=== PATIENT | female | born 1985 | race American Indian/Alaskan Native ===

== ENCOUNTER 2017-10-31 16:39 | Emergency (ER) | payer SELFPAY ==
[2017-10-31 17:10] VITALS: BP 148/99
[2017-10-31] MEDS ORDERED: MOTRIN PO ONE (18:53)
--- NOTE | 2017-10-31 18:54 | Emergency Department Report ---
Blank Doc - Documentation Documentation: Patient is a 32-year-old [place] female who states she was helping a friend clean up a new place that she is living in there was some debris on the ground and she patient may have stepped on something that went through a house shoe. Patient has swelling to the right foot and pain at the lateral foot. X-ray will be done to rule out foreign body
--- NOTE | 2017-10-31 20:25 | XRay Report ---
FINAL REPORT EXAM: XR FOOT 2V RT HISTORY: RIGHT FOOT PAIN TECHNIQUE: 2 views right foot PRIORS: None. FINDINGS: No fracture or dislocation identified. Joint spaces are within normal limits. No radiopaque foreign body seen. No soft tissue abnormality identified. IMPRESSION: Negative foot series
--- NOTE | 2017-10-31 21:27 | Emergency Department Report ---
ED Lower Extremity HPI - General Chief Complaint: Extremity Injury, Lower Stated Complaint: RIGHT FOOT PAIN Time Seen by Provider: 10/31/17 18:50 Source: patient, family Mode of arrival: Ambulatory Limitations: No Limitations - History of Present Illness Initial Comments: Patient is a 32-year-old Moroc[place] female who states she was helping a friend clean up a new place that she is living in there was some debris on the ground and she patient may have stepped on something that went through a house shoe. Patient has swelling to the right foot and pain at the lateral foot. Patient reported that pain to right ankle and foot is 8 out of 10. Pain is achy and [id number] medication taken without any relief. Patient says metal object pierced through her slipper and not aware of it broke off in her foot. Denies any numbness or tingling. Denies any restriction of movement to right foot including toes. Tetanus vaccine is not up-to-date. Pain is worse with movement and touch and better with resting. MD Complaint: foot injury -: This afternoon Injury: Foot: Right (right foot pain and swelling) Type of Injury: puncture wound Place: other (friend's house) Improves With: immobilization, rest Worsens With: movement, palpation Context: walking Associated Symptoms: swelling, ambulatory. denies: snap/pop sensation, numbness , tingling, unable to bear weight, able to partially bear weight Treatments Prior to Arrival: NSAIDS - Related Data Previous Rx's Medication Instructions Recorded Last Taken Type Ciprofloxacin HCl [Ciprofloxacin 500 mg PO Q12HR 7 Days #14 tab 10/31/17 Unknown Rx TAB] Ibuprofen [Motrin] 600 mg PO Q8H PRN #12 tablet 10/31/17 Unknown Rx Allergies Allergy/AdvReac Type Severity Reaction Status Date / Time tramadol [From Ultram] Allergy Hives Verified 10/31/17 17:10 ED Review of Systems ROS: Stated complaint: RIGHT FOOT PAIN Other details as noted in HPI Comment: All other systems reviewed and negative Constitutional: no symptoms reported Respiratory: no symptoms reported Cardiovascular: denies: chest pain, palpitations, dyspnea on exertion, edema, syncope, paroxysmal nocturnal dyspnea Gastrointestinal: denies: nausea, vomiting Genitourinary: denies: urgency, dysuria, hematuria, discharge Musculoskeletal: arthralgia. denies: back pain, joint swelling, myalgia Skin: other (puncture wound to right foot with pain and swelling). denies: rash Neurological: denies: headache, numbness, paresthesias, confusion, abnormal gait , vertigo ED Past Medical Hx - Past Medical History Previous Medical History?: Yes Hx Hypertension: Yes Hx Psychiatric Treatment: Yes (Anxiety) - Surgical History Past Surgical History?: Yes Additional Surgical History: c sect x 2, ectopic preg - Family History Family history: hypertension - Social History Smoking Status: Current Every Day Smoker Substance Use Type: None - Medications Home Medications: Home Medications Medication Instructions Recorded Confirmed Last Taken Type Ciprofloxacin HCl [Ciprofloxacin 500 mg PO Q12HR 7 Days #14 tab 10/31/17 Unknown Rx TAB] Ibuprofen [Motrin] 600 mg PO Q8H PRN #12 tablet 10/31/17 Unknown Rx ED Physical Exam - General Limitations: No Limitations General appearance: alert, in no apparent distress - Head Head exam: Present: atraumatic, normocephalic, normal inspection - Eye Eye exam: Present: PERRL, EOMI. Absent: scleral icterus, conjunctival injection Pupils: Present: normal accommodation - ENT ENT exam: Present: normal exam, normal orophraynx, mucous membranes moist - Neck Neck exam: Present: normal inspection, full ROM. Absent: tenderness, meningismus, lymphadenopathy, thyromegaly - Respiratory Respiratory exam: Present: normal lung sounds bilaterally. Absent: respiratory distress, chest wall tenderness, accessory muscle use - Cardiovascular Cardiovascular Exam: Present: regular rate, normal rhythm, normal heart sounds. Absent: systolic murmur, diastolic murmur - GI/Abdominal GI/Abdominal exam: Present: soft, normal bowel sounds. Absent: distended, tenderness, guarding, rebound, rigid, organomegaly, mass, bruit, pulsatile mass , hernia - Extremities Exam Extremities exam: Present: normal inspection, full ROM, tenderness (plantar aspect of rt foot), pedal edema, other (no clubbing or cyanosis noted. +2 pulses distal extremities. Mild swelling at the plantar aspect of right foot with small puncture site that that is already healing . No erythema. Tender to palpate. Trace swelling noted to right foot. No neurovascular compromise. +5 movement of all extremities.). Absent: normal capillary refill, joint swelling, calf tenderness - Back Exam Back exam: Present: normal inspection, full ROM. Absent: tenderness - Neurological Exam Neurological exam: Present: alert, oriented X3, normal gait, reflexes normal, other (no focal neurological deficit). Absent: motor sensory deficit - Psychiatric Psychiatric exam: Present: normal affect, normal mood - Skin Skin exam: Present: warm, dry, normal color, other (puncture wound right foot) - Expanded Skin Exam Expanded Type of lesion: Present: other (puncture wound) Distribution of rash: other (right foot plantar aspect) Description of rash: Present: tenderness (right foot plantar aspect at puncture site), erythematous (right foot plantar aspect puncture site), swelling (foot plantar aspect puncture site), other. Absent: vesicular, blisters, confluent, bullous, petechial, purpuic, urticarial, crusting, discharge, fluctuant, indurated ED Course Vital Signs 10/31/17 10/31/17 17:04 19:00 Temperature 98.9 F Pulse Rate 92 H Respiratory 20 18 Rate Blood Pressure 148/99 O2 Sat by Pulse 99 Oximetry - Reevaluation(s) Reevaluation #1: 10/31/17 21:50 Patient was given Motrin 800 mg by mouth in emergency room and she still complained of pain. Her x-ray shows no foreign body or fracture dislocation. She was also given [place] 5/325 2 tablets and do strict vaccine 0.5 mL. - Orthopedic Splinting/Casting Injury #1 Lower Extremity Injury Location: foot (right foot, crutches given. No other splint.) Other Orthopedic Equipment: crutches (given crutches with teaching and requests. Patient reports that is painful when she weightbears to the bottom of her right foot) ED Lower Extremity MDM - Radiology Data Radiology results: report reviewed X-ray right foot reveals no foreign body, fracture or dislocation. - Medical Decision Making ED course: She near after puncturing her right foot when metal object and reports pain to right foot plantar aspect. She was given Motrin 800 mg by mouth which did not relieve her pain she was then given [place] 5/325 2 tablets by mouth for pain and event booster 0.5 mL to update her tetanus . I discussed patient X reveal no foreign body or broken bones. Patient requested crutches because she said it's very painful to weight-bear to right foot. She was given crutches with instructions and discharged home with prescription for Motrin and to follow-up with orthopedic doctor if needed. Critical care attestation.: If time is entered above; I have spent that time in minutes in the direct care of this critically ill patient, excluding procedure time. ED Disposition Clinical Impression: Arthralgia of right foot, Cellulitis of foot, right Puncture wound of right foot Qualifiers: Encounter type: initial encounter Qualified Code(s): S91.331A - Puncture wound without foreign body, right foot, initial encounter Disposition: TO HOME OR SELFCARE Is pt being admited?: No Does the pt Need Aspirin: No Condition: Stable Instructions: Arthralgia (ED), Cellulitis (ED), Puncture Wound (ED), Acute Wound Care (ED) Additional Instructions: Take antibiotic as prescribed Follow-up with your primary care physician in 2 days Keep affected area clean and dry. Followed discharge instruction on acute wound care . Please return to emergency room if you develop increasing redness, streaking, fever, difficulty moving in and the right foot and increase in pain. Prescriptions: Ciprofloxacin HCl [Ciprofloxacin TAB] 500 mg PO Q12HR 7 Days #14 tab Ibuprofen [Motrin] 600 mg PO Q8H PRN #12 tablet PRN Reason: Pain Referrals: [facility] [Outside] - 2-3 Days SHARI MACHUCA MD [Staff Physician] - 2-3 Days Forms: Work/School Release Form(ED)
[2017-10-31] MEDS ORDERED: NORCO 5/325 PO ONE (21:33)
[2017-10-31] MEDS ORDERED: BOOSTRIX IM ONE (21:33)
== END 2017-10-31 22:25 | disposition home or self-care (01) ==
LOC: ED 16:39
DX: L03.115 Cellulitis of right lower limb (principal); I10 Essential (primary) hypertension; F17.200 Nicotine dependence, unspecified, uncomplicated; Z88.8 Allergy status to other drugs, medicaments and biological substances
CPT/HCPCS: 90471; 90715; 99283

== ENCOUNTER 2017-12-03 12:07 | Emergency (ER) | payer MEDICAID, OTHER ==
[2017-12-03 12:37] VITALS: BP 142/93
--- NOTE | 2017-12-03 13:21 | XRay Report ---
X-RAY RIGHT ANKLE THREE VIEWS: 12/03/17 12:07:00 CLINICAL: Injury and pain. FINDINGS: The ankle mortise is intact. No fracture or dislocation. Moderate medial and lateral soft tissue swelling . No soft tissue air or foreign body. IMPRESSION: Soft tissue injury and otherwise normal.
--- NOTE | 2017-12-03 14:47 | Emergency Department Report ---
ED Lower Extremity HPI - General Chief Complaint: Extremity Injury, Lower Stated Complaint: ANKLE PAIN Time Seen by Provider: 12/03/17 14:47 Source: patient Mode of arrival: Ambulatory Limitations: No Limitations - History of Present Illness Initial Comments: This is a 32-year-old female nontoxic, well nourished in appearance, no acute signs of distress presents to the ED with c/o of right ankle pain and swelling 1 day. Patient denies any trauma. Patient stated she was playing with son and twisted her ankle. Patient denies any fall. Patient denies any numbness, tingling, fever, chills, nausea, vomiting, chest pain or shortness of breath. Patient stated that she heard a popping sensation. Patient states she is concerned as she had a twisting sensation of the ankle. Patient states allergies include tramadol. Denies significant PMH. MD Complaint: ankle injury -: days(s) (1) Injury: Ankle: Right Type of Injury: inversion Place: home Severity: mild Severity scale (0 -10): 8 Improves With: nothing Worsens With: nothing Context: running Associated Symptoms: snap/pop sensation, swelling, able to partially bear weight. denies: numbness, tingling, unable to bear weight, ambulatory - Related Data Previous Rx's Medication Instructions Recorded Last Taken Type Ciprofloxacin HCl [Ciprofloxacin 500 mg PO Q12HR 7 Days #14 tab 10/31/17 Unknown Rx TAB] Ibuprofen [Motrin] 600 mg PO Q8H PRN #12 tablet 10/31/17 Unknown Rx Ibuprofen [Motrin] 600 mg PO Q8H PRN #30 tablet 12/03/17 Unknown Rx Allergies Allergy/AdvReac Type Severity Reaction Status Date / Time tramadol [From Ultra] Allergy Hives Verified 10/31/17 17:10 ED Review of Systems ROS: Stated complaint: ANKLE PAIN Other details as noted in HPI Constitutional: denies: chills, fever Eyes: denies: eye pain, eye discharge, vision change ENT: denies: ear pain, throat pain Respiratory: denies: cough, shortness of breath, wheezing Cardiovascular: denies: chest pain, palpitations Endocrine: no symptoms reported Gastrointestinal: denies: abdominal pain, nausea, diarrhea Genitourinary: denies: urgency, dysuria, discharge Musculoskeletal: arthralgia. denies: back pain, joint swelling Skin: denies: rash, lesions Neurological: denies: headache, weakness, paresthesias Psychiatric: denies: anxiety, depression Hematological/Lymphatic: denies: easy bleeding, easy bruising ED Past Medical Hx - Past Medical History Hx Hypertension: Yes Hx Psychiatric Treatment: Yes (Anxiety) - Surgical History Additional Surgical History: c sect x 2, ectopic preg - Social History Smoking Status: Current Every Day Smoker - Medications Home Medications: Home Medications Medication Instructions Recorded Confirmed Last Taken Type Ciprofloxacin HCl [Ciprofloxacin 500 mg PO Q12HR 7 Days #14 tab 10/31/17 Unknown Rx TAB] Ibuprofen [Motrin] 600 mg PO Q8H PRN #12 tablet 10/31/17 Unknown Rx Ibuprofen [Motrin] 600 mg PO Q8H PRN #30 tablet 12/03/17 Unknown Rx ED Physical Exam - General Limitations: No Limitations General appearance: alert, in no apparent distress - Head Head exam: Present: atraumatic, normocephalic - Eye Eye exam: Present: normal appearance Pupils: Present: normal accommodation - ENT ENT exam: Present: normal exam, mucous membranes moist - Neck Neck exam: Present: normal inspection, full ROM - Respiratory Respiratory exam: Present: normal lung sounds bilaterally. Absent: respiratory distress, wheezes, rales, rhonchi, stridor - Cardiovascular Cardiovascular Exam: Present: regular rate, normal rhythm, normal heart sounds. Absent: systolic murmur, diastolic murmur, rubs, gallop - GI/Abdominal GI/Abdominal exam: Present: soft, normal bowel sounds - Extremities Exam Extremities exam: Present: normal inspection, full ROM, tenderness, normal capillary refill. Absent: pedal edema, joint swelling, calf tenderness - Expanded Lower Extremity Exam Right Hip exam: Present: normal inspection, full ROM Upper Leg exam: Present: normal inspection, full ROM Knee exam: Present: normal inspection, full ROM Lower Leg exam: Present: normal inspection, full ROM Ankle exam: Present: normal inspection, full ROM (with pain), tenderness, swelling. Absent: abrasion, laceration, ecchymosis, deformity, crepidus, dislocation, erythema, anterior draw sign Foot/Toe exam: Present: normal inspection, full ROM. Absent: tenderness, swelling, abrasion, laceration, ecchymosis, deformity, crepidus, dislocation, erythema, amputation, puncture wound, foreign body, calcaneal tenderness, tenderness at base of 5th metatarsal, nail avulsion, subungual hematoma Neuro vascular tendon exam: Present: no vascular compromise. Absent: pulse deficit, abnormal cap refill, motor deficit, sensory deficit, tendon deficit, extremity cold to touch, pallor, abnormal 2-point discrimination, decreased fine /light touch, foot drop, peroneal nerve deficit, significant pain with passive ROM of distal joint Gait: Positive: observed and limited by pain 1 - pain with swelling - Back Exam Back exam: Present: normal inspection, full ROM - Neurological Exam Neurological exam: Present: alert, oriented X3 - Psychiatric Psychiatric exam: Present: normal affect, normal mood - Skin Skin exam: Present: warm, dry, intact, normal color. Absent: rash - Other Other exam information: Negative Thomapson test ED Course Vital Signs 12/03/17 12:28 Temperature 97.9 F Pulse Rate 77 Respiratory 16 Rate Blood Pressure 142/93 O2 Sat by Pulse 96 Oximetry - Reevaluation(s) Reevaluation #1: 12/03/17 15:17 Patient is speaking in full sentences with no signs of distress noted. ED Lower Extremity MDM - Medical Decision Making This is a 32-year-old female that presents with right ankle sprain. Patient is stable and was examined by me. X-ray has been obtained and dictated by the radiologist within normal limits. Patient is notified of the x-ray results with no questionable noted by the patient. Patient received ice and Motrin and in the ed. Patient is discharged with ankle stirrup and crutches and was educated by RN how to use crutches. Patient was instructed to rice therapy. Patient was referred instructed to Follow-up with a orthopedic doctor in 3-5 days or if symptoms worsen and continue return to emergency room as soon as possible. At time of discharge, the patient does not seem toxic or ill in appearance. No acute signs of distress noted. Patient agrees to discharge treatment plan of care. No further questions noted by the patient. Critical care attestation.: If time is entered above; I have spent that time in minutes in the direct care of this critically ill patient, excluding procedure time. ED Disposition Clinical Impression: Right ankle sprain Qualifiers: Encounter type: initial encounter Involved ligament of ankle: unspecified ligament Qualified Code(s): S93.401A - Sprain of unspecified ligament of right ankle, initial encounter Disposition: TO HOME OR SELFCARE Is pt being admited?: No Does the pt Need Aspirin: No Condition: Stable Instructions: Ankle Sprain (ED), Ankle Stirrup Splint (ED), Crutch Instructions (ED), Ibuprofen (By mouth) Additional Instructions: Follow-up with a orthopedic doctor in 3-5 days or if symptoms worsen and continue return to emergency room as soon as possible. Prescriptions: Ibuprofen [Motrin] 600 mg PO Q8H PRN #30 tablet PRN Reason: Pain Referrals: KUNAL EDGAR MD [Primary Care Provider] - 3-5 Days PRIMARY CARE, [Referring] - 3-5 Days SHARI MACHUCA MD [Staff Physician] - 3-5 Days [facility] [Outside] - 3-5 Days [facility] [Outside] - 3-5 Days Forms: Work/School Release Form(ED), Accompanied Note
[2017-12-03] MEDS ORDERED: TORADOL IM ONE (15:13)
== END 2017-12-03 15:41 | disposition home or self-care (01) ==
LOC: ED 12:07
DX: S93.401A Sprain of unspecified ligament of right ankle, initial encounter (principal); I10 Essential (primary) hypertension; F41.9 Anxiety disorder, unspecified; F17.200 Nicotine dependence, unspecified, uncomplicated; Z88.5 Allergy status to narcotic agent; W01.198A Fall on same level from slipping, tripping and stumbling with subsequent striking against other object, initial encounter; Y93.59 Activity, other involving other sports and athletics played individually; Y92.89 Other specified places as the place of occurrence of the external cause; Y99.8 Other external cause status
CPT/HCPCS: 29515; 73610; 96372; 99283; J1885

== ENCOUNTER 2018-02-07 22:50 | Emergency (ER) | payer SELFPAY ==
[2018-02-07 23:51] VITALS: BP 178/92
[2018-02-08 00:36] LABS: Basophils % (Auto) 0.4 % (0.0-1.8); Eosinophils # (Auto) 0.2 K/mm3 (0.0-0.4); Eosinophils % (Auto) 1.6 % (0.0-4.3); Hematocrit 32.2 % (30.3-42.9); Hemoglobin 10.7 gm/dl (10.1-14.3); Lymphocytes # (Auto) 3.3 K/mm3 (1.2-5.4); Mean Corpuscular HGB Conc 33 % (30-34); Mean Corpuscular Hemoglobin 29 pg (28-32); Mean Corpuscular Volume 88 fl (79-97); Monocytes # (Auto) 0.6 K/mm3 (0.0-0.8); Monocytes % (Auto) 5.5 % (0.0-7.3); Platelet Count 199 K/mm3 (140-440); Red Blood Count 3.66 M/mm3 (3.65-5.03); Red Cell Distribution Width 16.4 % (13.2-15.2)
[2018-02-08 00:53] LABS: Albumin 3.9 g/dL (3.9-5); BUN/Creatinine Ratio 13; Blood Urea Nitrogen 9 mg/dL (7-17); Calcium 8.7 mg/dL (8.4-10.2); Hemolysis Index 2
[2018-02-08 00:54] LABS: Alanine Aminotransferase < 5 units/L (7-56)
[2018-02-08 01:02] LABS: Bilirubin,Urine NEG (Negative); Blood,Urine LG (Negative); Color,Urine Yellow (Yellow); Protein,Urine <15 mg/dL mg/dL (Negative); Urobilinogen,Urine < 2.0 mg/dL (<2.0)
== END 2018-02-08 03:00 | disposition left against medical advice (07) ==
LOC: ED 22:50
DX: N93.9 Abnormal uterine and vaginal bleeding, unspecified (principal); Z53.21 Procedure and treatment not carried out due to patient leaving prior to being seen by health care provider
CPT/HCPCS: 36415; 80053; 81001; 84703; 85025

== ENCOUNTER 2018-03-10 10:52 | Emergency (ER) | payer MEDICAID ==
[2018-03-10 11:14] VITALS: BP 161/89
--- NOTE | 2018-03-10 12:47 | Emergency Department Report ---
ED Female HPI - General Chief complaint: Vaginal Bleeding Stated complaint: BLEEDING HEAVY/BLOOD CLOTS Time Seen by Provider: 03/10/18 12:31 Source: patient Mode of arrival: Ambulatory Limitations: No Limitations - History of Present Illness Initial comments: 32-year-old female past medical history ectopic , hypertension presents with complaint of 2 days of intermittent vaginal bleeding patient states this started 2 days ago and she passed a large clot which worried her. Patient states that bleeding diminished and is not currently bleeding. Denies fever chills nausea vomiting. States she had crampy lower abdominal pain consistent with menstruation. Patient states she had to change through several pads 2 days ago. Currently awake alert and oriented 3 not in acute distress. MD Complaint: vaginal bleeding Onset/Timin -: days(s) Location: suprapubic Radiation: suprapubic Severity scale (0 -10): 5 Quality: cramping Consistency: intermittent Are you Now?: No Associated Symptoms: vaginal bleeding - Related Data Sexually active: Yes Previous Rx's Medication Instructions Recorded Last Taken Type Ciprofloxacin HCl [Ciprofloxacin 500 mg PO Q12HR 7 Days #14 tab 10/31/17 Unknown Rx TAB] Ibuprofen [Motrin] 600 mg PO Q8H PRN #12 tablet 10/31/17 Unknown Rx Ibuprofen [Motrin] 600 mg PO Q8H PRN #30 tablet 12/03/17 Unknown Rx Ibuprofen [Motrin] 800 mg PO Q8HR PRN #25 tablet 03/10/18 Unknown Rx Allergies Allergy/AdvReac Type Severity Reaction Status Date / Time tramadol [From Ultram] Allergy Hives Verified 10/31/17 17:10 ED Review of Systems ROS: Stated complaint: BLEEDING HEAVY/BLOOD CLOTS Other details as noted in HPI Constitutional: denies: chills, fever Eyes: denies: eye pain, eye discharge, vision change ENT: denies: ear pain, throat pain Respiratory: denies: cough, shortness of breath, wheezing Cardiovascular: denies: chest pain, palpitations Endocrine: no symptoms reported Gastrointestinal: denies: abdominal pain, nausea, diarrhea Genitourinary: as per HPI, abnormal menses. denies: urgency, dysuria, discharge Musculoskeletal: denies: back pain, joint swelling, arthralgia Skin: denies: rash, lesions Neurological: denies: headache, weakness, paresthesias Psychiatric: denies: anxiety, depression Hematological/Lymphatic: denies: easy bleeding, easy bruising ED Past Medical Hx - Past Medical History Hx Hypertension: Yes Hx Psychiatric Treatment: Yes (Anxiety) - Surgical History Additional Surgical History: c sect x 2, ectopic preg - Social History Smoking Status: Never Smoker - Medications Home Medications: Home Medications Medication Instructions Recorded Confirmed Last Taken Type Ciprofloxacin HCl [Ciprofloxacin 500 mg PO Q12HR 7 Days #14 tab 10/31/17 Unknown Rx TAB] Ibuprofen [Motrin] 600 mg PO Q8H PRN #12 tablet 10/31/17 Unknown Rx Ibuprofen [Motrin] 600 mg PO Q8H PRN #30 tablet 12/03/17 Unknown Rx Ibuprofen [Motrin] 800 mg PO Q8HR PRN #25 tablet 03/10/18 Unknown Rx ED Physical Exam - General Limitations: No Limitations General appearance: alert, in no apparent distress - Head Head exam: Present: atraumatic, normocephalic - Eye Eye exam: Present: normal appearance - ENT ENT exam: Present: mucous membranes moist - Neck Neck exam: Present: normal inspection - Respiratory Respiratory exam: Present: normal lung sounds bilaterally. Absent: respiratory distress - Cardiovascular Cardiovascular Exam: Present: regular rate, normal rhythm. Absent: systolic murmur, diastolic murmur, rubs, gallop - GI/Abdominal GI/Abdominal exam: Present: soft, normal bowel sounds - Extremities Exam Extremities exam: Present: normal inspection - Back Exam Back exam: Present: normal inspection - Neurological Exam Neurological exam: Present: alert, oriented X3 - Psychiatric Psychiatric exam: Present: normal affect, normal mood - Skin Skin exam: Present: warm, dry, intact, normal color. Absent: rash ED Course Vital Signs 03/10/18 11:10 Temperature 98.5 F Pulse Rate 89 Respiratory 14 Rate Blood Pressure 161/89 O2 Sat by Pulse 100 Oximetry ED Medical Decision Making - Lab Data Result diagrams: 03/10/18 13:35 - Medical Decision Making A/P: Menometrorrhagia 1-patient is not , labs are unremarkable 2-patient has minimal to no pain with no reports of dysuria or vaginal discharge otherwise will defer to outpatient [facility] follow-up 3-Motrin when necessary 4-vital signs stable, case discussed with Dr. Rubin before discharge Critical care attestation.: If time is entered above; I have spent that time in minutes in the direct care of this critically ill patient, excluding procedure time. ED Disposition Clinical Impression: Vaginal bleeding Disposition: TO HOME OR SELFCARE Is pt being admited?: No Does the pt Need Aspirin: No Condition: Stable Instructions: Dysmenorrhea (ED), Menorrhagia (ED) Prescriptions: Ibuprofen [Motrin] 800 mg PO Q8HR PRN #25 tablet PRN Reason: Pain , Severe (7-10) Referrals: SANAZ GOFF [Primary Care Provider] - 3-5 Days [facility] [Provider Group] - 3-5 Days [facility] [Provider Group] - 3-5 Days Forms: Work/School Release Form(ED) Time of Disposition: 13:54
[2018-03-10 13:25] LABS: Bilirubin,Urine NEG (Negative); Blood,Urine MOD (Negative); Color,Urine Yellow (Yellow)
[2018-03-10 13:26] LABS: Mucus,Urine 2+ /HPF; Protein,Urine <15 mg/dL mg/dL (Negative)
[2018-03-10 13:27] LABS: HCG Qualitative,Urine Negative (Negative)
--- NOTE | 2018-03-10 13:35 | Emergency Department Report ---
Blank Doc - Documentation Documentation: 32-year-old female who presents to the ER with 2 days of vaginal bleeding. She had heavy vaginal bleeding on day 1, but has started to improve today. Endorses abdominal distention as well. Patient says that she is late. Her last menstrual period was in January. She is not currently on any control. Denies urinary complaints. She came in because she wants to get checked out. I have ordered lab work to rule out . If negative, patient likely is having menometrorrhagia and will require follow-up with the [facility] OPERATOR.
[2018-03-10] MEDS ORDERED: TORADOL IM ONE (13:36)
[2018-03-10 13:44] LABS: Basophils % (Auto) 0.4 % (0.0-1.8); Eosinophils # (Auto) 0.2 K/mm3 (0.0-0.4); Eosinophils % (Auto) 1.8 % (0.0-4.3); Hematocrit 33.5 % (30.3-42.9); Lymphocytes # (Auto) 2.3 K/mm3 (1.2-5.4); Lymphocytes % (Auto) 25.4 % (13.4-35.0); Mean Corpuscular HGB Conc 33 % (30-34); Mean Corpuscular Hemoglobin 29 pg (28-32); Mean Corpuscular Volume 89 fl (79-97); Monocytes # (Auto) 0.5 K/mm3 (0.0-0.8); Monocytes % (Auto) 6.1 % (0.0-7.3); Platelet Count 174 K/mm3 (140-440); Red Blood Count 3.76 M/mm3 (3.65-5.03); Red Cell Distribution Width 17.9 % (13.2-15.2)
== END 2018-03-10 14:13 | disposition home or self-care (01) ==
LOC: ED 10:52
DX: N93.9 Abnormal uterine and vaginal bleeding, unspecified (principal); I10 Essential (primary) hypertension; F41.9 Anxiety disorder, unspecified; Z88.8 Allergy status to other drugs, medicaments and biological substances
CPT/HCPCS: 36415; 81001; 81025; 84702; 85025; 86900; 86901; 96372; 99283; J1885

== ENCOUNTER 2020-09-28 19:53 | Emergency (ER) | payer MEDICAID ==
--- NOTE | 2020-09-28 20:39 | Emergency Department Report ---
Minor Respiratory - HPI Chief Complaint: Upper Respiratory Infection Stated Complaint: CONGESTION/CAN'T TASTE/SMELL COVID TEST NEG Time Seen by Provider: 09/28/20 20:34 Duration: 3 Days Severity: mild Minor Respiratory: Yes Able to Tolerate Fluids, No Rhinorrhea, No Sore Throat, No Ear Pain, No Cough, No Sick Contacts, No Hemoptysis, No Chest Pain, No Shortness of Breath, No Fever Other History: This is a 35-year-old female nontoxic well in appearnce with no signs of distress presents with loss of taste, smell and nasal congestion x3 days. Patient denies any cough, chest pain, shortness of breathe, fever, chills, nausea, vomiting, headache, stiff neck, abdominal pain, numbness or tingling. Patient denies any recent travels, long car rides, or recent hospital stays. Allergies to tramadol. ED Review of Systems ROS: Stated complaint: CONGESTION/CAN'T TASTE/SMELL COVID TEST NEG Other details as noted in HPI Comment: All other systems reviewed and negative Constitutional: denies: chills, fever Eyes: denies: eye pain, eye discharge, vision change ENT: congestion. denies: ear pain, throat pain Respiratory: denies: cough, shortness of breath, wheezing Cardiovascular: denies: chest pain, palpitations Endocrine: no symptoms reported Gastrointestinal: denies: abdominal pain, nausea, diarrhea Genitourinary: denies: urgency, dysuria, discharge Musculoskeletal: denies: back pain, joint swelling, arthralgia Skin: denies: rash, lesions Neurological: denies: headache, weakness, paresthesias Psychiatric: denies: anxiety, depression Hematological/Lymphatic: denies: easy bleeding, easy bruising ED Past Medical Hx - Past Medical History Previous Medical History?: Yes Hx Hypertension: Yes Hx Psychiatric Treatment: Yes (Anxiety) - Surgical History Past Surgical History?: Yes Additional Surgical History: c sect x 2, ectopic preg - Social History Smoking Status: Current Every Day Smoker - Medications Home Medications: Home Medications Medication Instructions Recorded Confirmed Last Taken Type Ciprofloxacin HCl [Ciprofloxacin 500 mg PO Q12HR 7 Days #14 tab 10/31/17 Unknown Rx TAB] Ibuprofen [Motrin] 600 mg PO Q8H PRN #12 tablet 10/31/17 Unknown Rx Ibuprofen [Motrin] 600 mg PO Q8H PRN #30 tablet 12/03/17 Unknown Rx Ibuprofen [Motrin] 800 mg PO Q8HR PRN #25 tablet 03/10/18 Unknown Rx Minor Respiratory Exam - Exam General: Vital signs noted. No distress. Alert and acting appropriately. HEENT: Yes Moist Mucous Membranes, No Pharyngeal Erythema, No Pharyngeal Exudates, No Rhinorrhea, No Conjuctival Injection, No Frontal Tenderness, No Maxillary Tenderness Ear: Neither TM Bulge, Neither TM Erythema, Neither EAC Pain, Neither EAC Discharge Neck: Yes Supple, No Adenopathy Lungs: Yes Good Air Exchange, No Wheezes, No Ronchi, No Stridor, No Cough, No Labored Respirations, No Retractions, No Use of Accessory Muscles, No Other Abnormal Lung Sounds Heart: Yes Regular, No Murmur Abdomen: Yes Normal Bowel Sounds, No Tenderness, No Peritoneal Signs Skin: No Rash, No Edema Neurologic: Alert and oriented, no deficits. Musculoskeletal: Unremarkable. ED Course Vital Signs 09/28/20 20:35 Temperature 98.7 F Pulse Rate 94 H Respiratory 17 Rate Blood Pressure 155/95 O2 Sat by Pulse 100 Oximetry - Reevaluation(s) Reevaluation #1: 09/28/20 20:45 Patient is speaking in full sentences with no signs of distress noted. ED Medical Decision Making - Medical Decision Making 35-year-old female that presents with suspected COVID. Patient is stable and was examined by me. Patient given refills for COVID testing. Patient was educated on OTC suppurative care and medications. Patient does meet COVID-19 precautions and patient was educated and instructed to self quaratine if symptoms worsen to return to the ED. Patient was educated on OTC suppurative care and medications. Vital signs are stable. Patient was instructed to Follow-up with a primary care doctor in 3-5 days or if symptoms worsen and continue return to emergency room as soon as possible. At time of discharge, the patient does not seem toxic or ill in appearance. No acute signs of distress noted. Patient agrees to discharge treatment plan of care. No further questions noted by the patient. Critical care attestation.: If time is entered above; I have spent that time in minutes in the direct care of this critically ill patient, excluding procedure time. ED Disposition Clinical Impression: Suspected COVID-19 virus infection Disposition: MED SCREENING EXAM-LEFT Is pt being admited?: No Does the pt Need Aspirin: No Condition: Stable Instructions: COVID-19 Frequently Asked Questions, COVID-19 Additional Instructions: Follow-up with a primary care doctor in 3-5 days or if symptoms worsen and continue return to emergency room as soon as possible. Referrals: PRIMARY CARE, [Referring] - 3-5 Days MONA RESTREPO MD [Staff Physician] - 3-5 Days Time of Disposition: 20:47
[2020-09-28 20:40] VITALS: BP 155/95
== END 2020-09-28 20:45 | disposition left against medical advice (07) ==
LOC: ED 19:53
DX: R09.81 Nasal congestion (principal); Z20.828 Contact with and (suspected) exposure to other viral communicable diseases; Z53.21 Procedure and treatment not carried out due to patient leaving prior to being seen by health care provider

== ENCOUNTER 2021-03-18 08:41 | Emergency (ER) | payer MEDICAID ==
[2021-03-18 08:48] VITALS: BP 149/92
--- NOTE | 2021-03-18 10:58 | XRay Report ---
Right ankle 3 views INDICATION: Ankle pain FINDINGS: Diffuse swelling throughout the medial and lateral ankle. Alignment appears normal. Calcane us and talus appear intact. IMPRESSION: Diffuse soft tissue swelling without fracture. Signer Name: Chaim Iniguez MD Signed: 03/18/2021 10:54 AM Workstation Name: [id number]
[2021-03-18] MEDS ORDERED: IBUPROFEN 800 MG TAB PO ONE (11:10)
--- NOTE | 2021-03-18 11:31 | Emergency Department Report ---
ED Lower Extremity HPI - General Chief Complaint: Extremity Injury, Lower Stated Complaint: ANKLE PAIN/ BRUISING Time Seen by Provider: 03/18/21 09:12 Source: patient Mode of arrival: Ambulatory Limitations: No Limitations - History of Present Illness Initial Comments: This is a 35-year-old female nontoxic, well nourished in appearance, no acute signs of distress presents to the ED with c/o of right ankle pain several days patient stated that she is unsure how she injured it or develop any injuries. Patient denies any direct trauma. Patient denies any numbness, tingling, fever, chills, nausea, vomiting, chest pain, shortness of breath, headache, stiff neck. Patient denies any joint swelling or joint redness. Patient denies decreased range of motion. Patient stated has decreased gait due to pain. Patient stated allergies to tramadol. Denies any significant past medical history. MD Complaint: ankle injury -: days(s) Injury: Ankle: Right Severity: mild Severity scale (0 -10): 8 Improves With: immobilization Worsens With: weight bearing, movement, palpation Associated Symptoms: swelling, able to partially bear weight. denies: snap/pop sensation, numbness, tingling, unable to bear weight - Related Data Previous Rx's Medication Instructions Recorded Last Taken Type Ciprofloxacin HCl [Ciprofloxacin 500 mg PO Q12HR 7 Days #14 tab 10/31/17 Unknown Rx TAB] Ibuprofen [Motrin] 600 mg PO Q8H PRN #12 tablet 10/31/17 Unknown Rx Ibuprofen [Motrin] 600 mg PO Q8H PRN #30 tablet 12/03/17 Unknown Rx Ibuprofen [Motrin] 800 mg PO Q8HR PRN #25 tablet 03/10/18 Unknown Rx Naproxen 500 mg PO Q12H PRN #12 tablet 03/18/21 Unknown Rx Allergies Allergy/AdvReac Type Severity Reaction Status Date / Time tramadol [From Ultram] Allergy Hives Verified 03/18/21 08:44 ED Review of Systems ROS: Stated complaint: ANKLE PAIN/ BRUISING Other details as noted in HPI Comment: All other systems reviewed and negative Constitutional: denies: chills, fever Eyes: denies: eye pain, eye discharge, vision change ENT: denies: ear pain, throat pain Respiratory: denies: cough, shortness of breath, wheezing Cardiovascular: denies: chest pain, palpitations Endocrine: no symptoms reported Gastrointestinal: denies: abdominal pain, nausea, diarrhea Genitourinary: denies: urgency, dysuria, discharge Musculoskeletal: denies: back pain, joint swelling, arthralgia Skin: denies: rash, lesions Neurological: denies: headache, weakness, paresthesias Psychiatric: denies: anxiety, depression Hematological/Lymphatic: denies: easy bleeding, easy bruising ED Past Medical Hx - Past Medical History Hx Hypertension: Yes Hx Psychiatric Treatment: Yes (Anxiety) - Surgical History Additional Surgical History: c sect x 2, ectopic preg - Social History Smoking Status: Current Every Day Smoker Substance Use Type: None - Medications Home Medications: Home Medications Medication Instructions Recorded Confirmed Last Taken Type Ciprofloxacin HCl [Ciprofloxacin 500 mg PO Q12HR 7 Days #14 tab 10/31/17 Unknown Rx TAB] Ibuprofen [Motrin] 600 mg PO Q8H PRN #12 tablet 10/31/17 Unknown Rx Ibuprofen [Motrin] 600 mg PO Q8H PRN #30 tablet 12/03/17 Unknown Rx Ibuprofen [Motrin] 800 mg PO Q8HR PRN #25 tablet 03/10/18 Unknown Rx Naproxen 500 mg PO Q12H PRN #12 tablet 03/18/21 Unknown Rx ED Physical Exam - General Limitations: No Limitations General appearance: alert, in no apparent distress - Head Head exam: Present: atraumatic, normocephalic - Eye Eye exam: Present: normal appearance - Neck Neck exam: Present: normal inspection, full ROM. Absent: lymphadenopathy - Respiratory Respiratory exam: Absent: respiratory distress - Cardiovascular Cardiovascular Exam: Present: regular rate - Extremities Exam Extremities exam: Present: normal inspection, full ROM, tenderness, normal capillary refill. Absent: joint swelling, calf tenderness - Expanded Lower Extremity Exam Right Hip exam: Present: normal inspection, full ROM. Absent: tenderness, swelling Upper Leg exam: Present: normal inspection, full ROM. Absent: tenderness, swelling Knee exam: Present: normal inspection, full ROM. Absent: tenderness, swelling Lower Leg exam: Present: normal inspection, full ROM. Absent: tenderness, swelling, abrasion, laceration, ecchymosis, deformity, crepidus, dislocation, erythema, palpable cord, Nikky's sign Ankle exam: Present: normal inspection, full ROM, tenderness, swelling. Absent: abrasion, laceration, ecchymosis, deformity, crepidus, dislocation, erythema, anterior draw sign Foot/Toe exam: Present: normal inspection, full ROM. Absent: tenderness, swelling, abrasion, laceration, ecchymosis, deformity, crepidus, dislocation, erythema, amputation, puncture wound, foreign body, calcaneal tenderness, tenderness at base of 5th metatarsal, nail avulsion, subungual hematoma Neuro vascular tendon exam: Present: no vascular compromise Gait: Positive: observed and limited by pain 1 - pain here - Back Exam Back exam: Present: normal inspection, full ROM - Neurological Exam Neurological exam: Present: alert, oriented X3 - Psychiatric Psychiatric exam: Present: normal affect, normal mood - Skin Skin exam: Present: warm, dry, intact, normal color. Absent: rash - Other Other exam information: Negative Gomez test ED Course Vital Signs 03/18/21 08:47 Temperature 98.4 F Pulse Rate 85 Respiratory 18 Rate Blood Pressure 149/92 O2 Sat by Pulse 99 Oximetry - Reevaluation(s) Reevaluation #1: 03/18/21 11:33 Patient is speaking in full sentences with no signs of distress noted. ED Lower Extremity MDM - Radiology Data [facility] [address] [place] [address] XRay Report Signed Patient: FLORIAN EVANGELISTA MR#: [id number] : 1985 Acct:[id number] Age/Sex: 35 / F ADM Date: 03/18/21 Loc: ED Atten ding Dr: Ordering Physician: CAITLIN FERRARI NP Date of Service: 03/18/21 Procedure(s): XR ankle 3+V RT Accession Number(s): [id number] cc: CAITLIN FERRARI NP Fluoro Time In Minutes: Right ankle 3 views INDICATION: Ankle pain FINDINGS: Diffuse swelling throughout the medial and lateral ankle. Alignment appears normal. Calcaneus and talus appear intact. IMPRESSION: Diffuse soft tissue swelling without fracture. Signer Name: Chaim Iniguez MD Signed: 03/18/2021 10:54 AM Workstation Name: [email or web address] Transcribed By: DENISSE Dictated By: JORDAN INIGUEZ MD Electronically Authenticated By: JORDAN INIGUEZ MD Signed Date/Time: 03/18/211053 DD/ 53 TD/TT: - Medical Decision Making This is a 35-year-old female that presents with right ankle strain. Patient is stable and was examined by me. I referred patient to an orthopedic doctor for further evaluation for possible MRI. X-ray has been obtained and dictated by the radiologist. Patient is notified of the x-ray report with noted by the patient. Patient does have normal gait with some tenderness and no joint swelling. No ecchymosis. no joint redness or swelling. Not warm to touch. No signs of cellulites present. Patient received a ankle stirrup and crutches and was educated by RN how to use crutches. Patient was instructed to RICE therapy. Patient received Motrin for pain. Patient is discharged with naproxen. At time of discharge, the patient does not seem toxic or ill in appearance. No acute signs of distress noted. Patient agrees to discharge treatment plan of care. No further questions noted by the patient. Critical care attestation.: If time is entered above; I have spent that time in minutes in the direct care of this critically ill patient, excluding procedure time. ED Disposition Clinical Impression: Right ankle strain Qualifiers: Encounter type: initial encounter Qualified Code(s): S96.911A - Strain of unspecified muscle and tendon at ankle and foot level, right foot, initial encounter Disposition: TO HOME OR SELFCARE Is pt being admited?: No Does the pt Need Aspirin: No Condition: Stable Instructions: RICE Therapy for Routine Care of Injuries, [id number], Crutch Use, Adult, [id number], Ankle Sprain, [id number] Additional Instructions: Follow-up with a orthopedic doctor in 3-5 days or if symptoms worsen and continue return to emergency room as soon as possible. No physical activity that extremity until cleared by orthopedic doctor Prescriptions: Naproxen 500 mg PO Q12H PRN #12 tablet PRN Reason: Pain , Severe (7-10) Referrals: PRIMARY CAREMD [Primary Care Provider] - 3-5 Days SHARI MACHUCA MD [Staff Physician] - 3-5 Days Forms: Work/School Release Form(ED) Time of Disposition: 11:37
== END 2021-03-18 11:54 | disposition home or self-care (01) ==
LOC: ED 08:41
DX: S96.911A Strain of unspecified muscle and tendon at ankle and foot level, right foot, initial encounter (principal); I10 Essential (primary) hypertension; F41.9 Anxiety disorder, unspecified; F17.200 Nicotine dependence, unspecified, uncomplicated; Z98.890 Other specified postprocedural states; Z79.1 Long term (current) use of non-steroidal anti-inflammatories (NSAID); Z79.2 Long term (current) use of antibiotics; Z79.899 Other long term (current) drug therapy; Z88.8 Allergy status to other drugs, medicaments and biological substances; X58.XXXA Exposure to other specified factors, initial encounter; Y93.89 Activity, other specified; Y92.89 Other specified places as the place of occurrence of the external cause; Y99.8 Other external cause status